=== PATIENT | female | born 1970 | race Caucasian/White ===

== ENCOUNTER 2024-02-15 18:55 | Emergency (ER) | payer OTHER ==
[~2024-02-15] VITALS: Ht 165.1 cm; Wt 97.3 kg
[2024-02-15] MEDS ORDERED: LISINOPRIL-HCT1 EACH (19:29)
[2024-02-15] MEDS ORDERED: TRULICITY1.5 MG/0.5 (19:29)
[2024-02-15] MEDS ORDERED: SERTRALINE HCL100 MG (19:29)
[2024-02-15] MEDS ORDERED: ATENOLOL50 MG (19:29)
[2024-02-15 20:34] LABS: BASOPHILS 1.2 % (0-2); EOSINOPHILS 1.2 % (0-6); HEMATOCRIT 48.2 % (35.0-50.0); LYMPHOCYTES 24.7 % (24-44); MCH 30.2 (27-36); MCHC 33.3 g/dl (30-36); MCV 90.8 fl (81-99); MONOCYTES 4.1 % (0-12); NEUTROPHILS 68.8 % (39-80); PLATELET COUNT 285 K/uL (140-440); RDW 14.3 (10.5-15.0)
[2024-02-15 20:45] LABS: ALBUMIN 3.5 g/dL (3.4-5.0); ALBUMIN/GLOBULIN RATIO 0.81 (1.1-2.4); ANION GAP 12.8 (7-21); BILIRUBIN, TOTAL 0.4 ng/dL (0.2-1.0); BUN/CREATININE RATIO 13.79 (6.0-28.6); CALCIUM 9.2 mg/dL (8.5-10.1); CREATININE, SERUM 1.45 mg/dL (0.55-1.02); MAGNESIUM 1.6 mg/dL (1.8-2.4); POTASSIUM 3.8 mmol/L (3.5-5.1); PROTEIN, TOTAL 7.8 g/dL (6.4-8.2)
[2024-02-15] MEDS ORDERED: hydrALAZINE HCL 20 MG/ML VIAL IV ONE (21:15)
[2024-02-15] MEDS ORDERED: atenoloL 50 MG TAB PO ONE (21:15)
[2024-02-15] MEDS ORDERED: lisinopriL 20 MG TAB PO ONE (21:15)
[2024-02-15] MEDS ORDERED: hydroCHLOROthiazide 25 MG TAB PO ONE (21:15)
[2024-02-15] MEDS ORDERED: LACTATED RINGER'S 1,000 ML IV ONE (21:30)
[2024-02-15 22:41] LABS: BILIRUBIN, URINE NEGATIVE (negative); BLOOD/HGB, URINE NEGATIVE (Negative); KETONE, URINE NEGATIVE (Negative); LEUK ESTERASE, URINE NEGATIVE (negative); NITRITE, URINE NEGATIVE (negative)
[2024-02-15 22:55] LABS: AMPHETAMINES, URINE POSITIVE (NEGATIVE); BARBITURATES, URINE POSITIVE (NEGATIVE); BENZODIAZEPINE, URINE NEGATIVE (NEGATIVE); BUPRENORPHINE, URINE NEGATIVE (NEGATIVE); CANNABINOID, URINE NEGATIVE (NEGATIVE); COCAINE, URINE NEGATIVE (NEGATIVE); ECSTASY, URINE NEGATIVE (NEGATIVE); FENTANYL, URINE NEGATIVE (NEGATIVE); METHADONE, URINE NEGATIVE (NEGATIVE); OPIATES, URINE NEGATIVE (NEGATIVE); OXYCODONE, URINE NEGATIVE (NEGATIVE); PHENCYCLIDINE, URINE NEGATIVE (NEGATIVE)
[2024-02-15 23:37] VITALS: BP 184/105
--- NOTE | 2024-02-18 21:34 | EKG ---
[facility] [address] [place], [place] [address] Signed Sinus rhythm with occasional premature ventricular complexes Moderate voltage criteria for LVH, may be normal variant ( R in aVL , [place] product ) ST \T\ T wave abnormality, consider inferolateral ischemia Prolonged QT Abnormal ECG No previous ECGs available Confirmed by Chris Ricci MD ([id number]) on 02/18/2024 9:33:56 PM Electronically Signed By: CHRIS RICCI DO 02/[id number] PATIENT NAME: TIMMY SMITH Radha Electrocardiogram DATE OF : 74 PHYSICIAN: CHRIS RICCI DO REPORT #: [id number] REPORT IS CONFIDENTIAL AND NOT TO BE RELEASED WITHOUT AUTHORIZATION
== END 2024-02-15 23:39 | disposition home or self-care (01) ==
LOC: ED 18:55
PROVIDERS: Internal Medicine
DX: I16.0 Hypertensive urgency (principal); I10 Essential (primary) hypertension; F15.90 Other stimulant use, unspecified, uncomplicated; Z79.85 Long-term (current) use of injectable non-insulin antidiabetic drugs; Z79.899 Other long term (current) drug therapy
CPT/HCPCS: 36415; 80053; 80307; 81003; 83735; 84484; 85025; 93005; 93010; 96361; 96374; 99284-25; J0360; J7121

== ENCOUNTER 2024-10-26 01:02 | Emergency (ER) | payer OTHER ==
[~2024-10-26] VITALS: Ht 167.6 cm; Wt 96.1 kg
[~2024-10-26 01:02] MED LIST: ATENOLOL50 MG; LISINOPRIL-HCT1 EACH; SERTRALINE HCL100 MG; TRULICITY1.5 MG/0.5
[2024-10-26] MEDS ORDERED: PROPRANOLOL HCL10 MG PO (01:13)
[2024-10-26] MEDS ORDERED: FLUOXETINE HCL20 MG PO (01:13)
[2024-10-26] MEDS ORDERED: BUTALB-ACETAMI1 EACH PO (01:13)
[2024-10-26] MEDS ORDERED: TRULICITY4.5 MG/0.5 SQ (01:13)
[2024-10-26] MEDS ORDERED: SODIUM CHLORIDE 0.9% 1,000 ML IV ONE (01:30)
[2024-10-26] MEDS ORDERED: ondansetron HCL 4 MG/2 ML VIAL IV ONE (01:30)
[2024-10-26] MEDS ORDERED: GLUCAGON,HUMAN RECOMBINANT 1 MG/ML VIAL IV ONE (01:30)
[2024-10-26 01:31] LABS: BILIRUBIN, URINE NEGATIVE (negative); BLOOD/HGB, URINE TRACE-I (Negative); KETONE, URINE NEGATIVE (Negative); LEUK ESTERASE, URINE NEGATIVE (negative); NITRITE, URINE NEGATIVE (negative)
[2024-10-26 01:35] LABS: EPITHELIAL CELLS, URINE SQUAMOUS 1+ /lpf (0-1+); WHITE BLOOD CELLS, URINE 41-50 /HPF (0-5)
[2024-10-26 01:36] LABS: BACTERIA, URINE 4+ /hpf (negative); CASTS, URINE NONE SEEN \\lpf; COLLECTION TYPE, URINE CLEAN CATCH; CRYSTALS, URINE NONE SEEN (0-1+); REFLEX CULTURE, URINE Yes (No)
[2024-10-26 01:42] LABS: BASOPHILS 0.5 % (0.1-1.2); EOSINOPHILS 1.2 % (0.7-5.8); HEMATOCRIT 49.4 % (34.1-44.9); HEMOGLOBIN 16.4 g/dL (11.2-15.7); LYMPHOCYTES 27.6 % (19.3-51.7); MCHC 33.2 g/dL (32.2-35.5); MCV 90.5 fL (79.4-94.8); MONOCYTES 5.4 % (4.7-12.5); PLATELET COUNT 296 K/uL (182-369); RBC 5.46 M/uL (3.93-5.22)
[2024-10-26] MEDS ORDERED: NITROFURANTOIN MONOHYD MACROCR 100 MG CAP PO ONE (01:45)
[2024-10-26 01:47] LABS: AMPHETAMINES, URINE POSITIVE (NEGATIVE); BARBITURATES, URINE POSITIVE (NEGATIVE); BENZODIAZEPINE, URINE NEGATIVE (NEGATIVE); BUPRENORPHINE, URINE NEGATIVE (NEGATIVE); CANNABINOID, URINE NEGATIVE (NEGATIVE); COCAINE, URINE POSITIVE (NEGATIVE); ECSTASY, URINE POSITIVE (NEGATIVE); FENTANYL, URINE NEGATIVE (NEGATIVE); METHADONE, URINE NEGATIVE (NEGATIVE); OPIATES, URINE NEGATIVE (NEGATIVE); OXYCODONE, URINE NEGATIVE (NEGATIVE); PHENCYCLIDINE, URINE NEGATIVE (NEGATIVE)
[2024-10-26 02:10] LABS: ACETAMINOPHEN 0 ug/mL (10-30); ALBUMIN 3.8 g/dL (3.4-5.0); ALBUMIN/GLOBULIN RATIO 0.81 (1.1-2.4); ALCOHOL, MEDICAL <3 ng/dL (<3); ALKALINE PHOSPHATASE 143 U/L (46-116); ALT (SGPT) 32 U/L (14-59); ANION GAP 12.9 (7-21); AST (SGOT) 23 U/L (15-37); BILIRUBIN, TOTAL 0.5 mg/dL (0.2-1.0); BUN/CREATININE RATIO 10.98 (6.0-28.6); CALCIUM 9.6 mg/dL (8.5-10.1); CARBON DIOXIDE 29 mmol/L (21-32); CHLORIDE 104 mmol/L (98-107); CREATININE, SERUM 1.73 mg/dL (0.55-1.02); GLOMERULAR FILTRATION RATE,EST 35 mL/min (>60); MAGNESIUM 2.1 mg/dL (1.8-2.4); POTASSIUM 3.9 mmol/L (3.5-5.1); PROTEIN, TOTAL 8.5 g/dL (6.4-8.2); SALICYLATE 3.1 mg/dL (2.8-20.0); TSH, 3RD GENERATION 1.927 uIU/mL (0.358-3.740); UREA NITROGEN 19 mg/dL (7-18)
[2024-10-26] MEDS ORDERED: LORazepam 2 MG/ML VIAL IV ONE (04:15)
[2024-10-26 06:27] LABS: SALICYLATE 2.1 mg/dL (2.8-20.0)
[2024-10-26 09:48] VITALS: BP 168/101
--- NOTE | 2024-10-26 19:09 | EKG ---
[facility] [address] [facility] [place] [address] Signed Sinus tachycardia Moderate voltage criteria for LVH, may be normal variant ( R in aVL , [place] product ) ST \T\ Marked T wave abnormality, consider lateral ischemia Abnormal ECG When compared with ECG of 15-FEB-2024 21:12, premature ventricular complexes are no longer present Confirmed by Shani Ricci DO ([id number]) on 10/26/2024 7:09:44 PM Electronically Signed By: SHANI RICCI DO 10/26/24 1909 PATIENT NAME: TIMMY LAINEZ Electrocardiogram DATE OF : 74 PHYSICIAN: SHANI RICCI DO REPORT #: [id number] REPORT IS CONFIDENTIAL AND NOT TO BE RELEASED WITHOUT AUTHORIZATION
== END 2024-10-26 09:50 | disposition home or self-care (01) ==
LOC: ED 01:02
PROVIDERS: Family Medicine
DX: T44.7X2A Poisoning by beta-adrenoreceptor antagonists, intentional self-harm, initial encounter (principal); I10 Essential (primary) hypertension; Z79.899 Other long term (current) drug therapy
CPT/HCPCS: 36415; 80053; 80307; 81001; 83735; 84443; 84484; 84702; 84703; 85025; 87077; 87088; 87186; 93005; 93010; 96374; 96375; 99285-25; G0480; J1610; J2060; J2405; J7030